=== PATIENT | female | born 1965 | race Asian ===

== ENCOUNTER 2017-08-21 02:42 | Emergency (ER) | payer MEDICAID ==
[~2017-08-21] VITALS: Ht 157.5 cm; Wt 94.8 kg
[~2017-08-21 02:42] MED LIST: ATENOLOL50 MG PO; COUMADIN1 MG PO; COUMADIN5 MG PO; COUMADIN6 MG PO; ENALAPRIL20 M1 PO; METFORMIN HCL500 MG PO; METOPROLOL TART25 M1 PO; SIMVASTATIN40 M1 PO
[2017-08-21 03:03] VITALS: Ht 157.5 cm; Wt 94.8 kg
[2017-08-21 03:51] LABS: BASOPHIL % 0.8 % (0-2); PLATELET COUNT 253 x10^3mcL (130-400); RED CELL DISTRIBUTION WIDTH 13.2 % (11.5-14.5)
[2017-08-21 03:57] LABS: CALCIUM 8.4 mg/dL (8.5-10.1); CARBON DIOXIDE 26.4 mmol/L (21-32); CHLORIDE SERUM 106 mmol/L (98-107); CREATININE SERUM 0.7 mg/dL (0.6-1.0); GFR1 > 60 mL/min; GLUCOSE SERUM 109 mg/dL (74-106); POTASSIUM SERUM 4.1 mmol/L (3.5-5.1); SODIUM SERUM 144 mmol/L (136-145)
[2017-08-21 04:03] LABS: ALBUMIN 3.8 g/dL (3.4-5.0); ALKALINE PHOSPHATASE 62 U/L (46-116); ALT/SGPT 33 U/L (14-59); AST/SGOT 27 U/L (15-37); BILIRUBIN TOTAL 0.48 mg/dL (0.20-1.00); TOTAL PROTEIN, SERUM 8.1 g/dL (6.4-8.2)
[2017-08-21 04:16] LABS: microscopic required? YES; urine erythrocyte 3+ (NEGATIVE)
[2017-08-21 05:01] VITALS: BP 155/97
== END 2017-08-21 05:01 | disposition home or self-care (01) ==
LOC: ED 02:42
PROVIDERS: Emergency Medicine
DX: N39.0 Urinary tract infection, site not specified (principal); T45.511A Poisoning by anticoagulants, accidental (unintentional), initial encounter; I10 Essential (primary) hypertension; Z88.6 Allergy status to analgesic agent
CPT/HCPCS: 36415